=== PATIENT | female | born 1935 | race Caucasian/White ===

== ENCOUNTER 2018-06-22 17:06 | Emergency (ER) | payer MEDICARE, OTHER ==
--- NOTE | 2018-06-22 19:25 | ERPHSYRPT ---
- History of Present Illness Source: patient Exam Limitations: no limitations Patient Subjective Stated Complaint: nose bleed for past 2 hours Triage Nursing Assessment: Pt c/o of a nose bleed for the past 2 hours, moderately bleeding, hx of epistaxis, denies any trauma, was sitting in a chair watching television when it began, BP 169/87, denies pain, denies any other issues at this time Physician History: Pt is an 83 y/o female that started having nose bleed for 2 hrs, before presenting to the ER. Pt denies any nose picking, and states, her nose bleed just started out of nowhere. Pt takes all her meds as prescribed, including her BP meds. No complains of any rhinorrhea, sinusitis, headache or any h/o severe nose bleed. Timing/Duration: abrupt onset Severity: moderate ENT Location: nose Prearrival Treatment: no prearrival treatment Modifying Factors: Improves With: nothing Associated Symptoms: epistaxis Allergies/Adverse Reactions: No Known Drug Allergies Allergy (Verified 06/22/18 17:27) Home Medications: Levothyroxine Sodium 88 mcg PO DAILY 06/22/18 [History] Olmesartan/Hydrochlorothiazide [Olmesartan-Hctz 40-12.5 mg Tab] 1 tab PO DAILY 06/22/18 [History] Rosuvastatin Calcium [Crestor] 20 mg PO DAILY 06/22/18 [History] - Review of Systems Constitutional: No Fever, No Chills Eyes: No Symptoms Ears, Nose, & Throat: Epistaxis Respiratory: No Cough, No Dyspnea Cardiac: No Chest Pain, No Edema, No Syncope Abdominal/Gastrointestinal: No Abdominal Pain, No Nausea, No Vomiting, No Diarrhea Neurological: No Dizziness, No Focal Weakness, No Sensory Changes Endocrine: No Symptoms - Past Medical History Cardiac History: High Cholesterol, Hypertension - Past Surgical History Past Surgical History: Yes Female Surgical History: Hysterectomy - Social History Smoking Status: Never smoker Exposure to second hand smoke: No Drug Use: none Patient Lives Alone: No - Female History Hx Now: No - Nursing Vital Signs Nursing Vital Signs: Initial Vital Signs Pulse Rate 99 H 06/22/18 17:11 Blood Pressure 169/87 06/22/18 17:11 O2 Sat by Pulse Oximetry 93 L 06/22/18 17:11 Pain Scale Pain Intensity 4 - Physical Exam General Appearance: no apparent distress, alert Nasal Exam: active bleeding Throat Exam: pharynx normal, moist mucus membranes, No tonsillar exudate Cardiovascular/Respiratory Exam: normal breath sounds, regular rate/rhythm Abdominal Exam: non-tender, soft SpO2: 94 - Course Nursing assessment & vital signs reviewed: Yes - Progress Progress: improved Progress Note: 06/22/18 19:27 A rhinorocket was placed in pt's r nare. Bleeding stopped. Pt states, she drank some water and tolerated it well. Pt was cleared to d/c. Discussed with .: Kulwinder Will see patient in: office (Do not remove the rhino rocket till seen by PCP and ENT.) - Departure Time of Disposition: 19:28 Departure Disposition: Home Clinical Impression: Posterior epistaxis Condition: Stable Critical Care Time: No Referrals: IAN MANZANO MD [Primary Care Provider] - Additional Instructions: F/U with PCP tomorrow and referal for ENT, for posterior bleed.
[2018-06-22 19:42] VITALS: BP 133/88; PULSE 76; O2SAT 95
== END 2018-06-22 19:41 | disposition home or self-care (01) ==
LOC: ED 17:06
DX: R04.0 Epistaxis (principal); E78.00 Pure hypercholesterolemia, unspecified; I10 Essential (primary) hypertension
CPT/HCPCS: 99283

== ENCOUNTER 2018-08-05 15:13 | Observation (INO) | payer MEDICARE, OTHER ==
[2018-08-05] MEDS ORDERED: Sodium Chloride 0.9% 1000 ML 1,000 ML IV SCH (16:00)
--- NOTE | 2018-08-05 16:11 | ERPHSYRPT ---
- History of Present Illness Time Seen by Provider: 08/05/18 15:45 Source: family Exam Limitations: clinical condition Patient Subjective Stated Complaint: Pt states "She was here about a month ago for a nose bleed and ever since then she has really gone down hill. She has lost allot of weight, she has been dizzy, she has not eaten much at all. " Triage Nursing Assessment: Pt alert and oriented X 2, skin pwd. Pt ambulates with a shambling gait, able to speak in clear full sentences. PT in no apparent respiratory distress. Physician History: PATIENT WITH A HISTORY OF HYPERTENSION, PER SPOUSE HAS BECOME MORE CONFUSED OVER THE PAST 2 MONTHS, POOR APPETITE, HAS UNSTEADY GAIT ASSOCIATED WITH DIZZINESS. PATIENT DENIES HEADACHE, BLURRED VISION, SLURRED SPEECH, DYSPNEA, COUGH, NAUSEA, EMESIS, DIARRHEA OR URINARY SYMPTOMS. Timing/Duration: week(s) Severity: moderate Character of Deficits: other (UNSTABLE GAIT) Deficits: off balance Baseline/Normal Cognition: alert but confused Current Cognition: alert oriented x 3 Baseline Gait: walks w/o assistance Associated Symptoms: weakness Allergies/Adverse Reactions: No Known Drug Allergies Allergy (Verified 06/22/18 17:27) Home Medications: Levothyroxine Sodium 88 mcg PO DAILY 06/22/18 [History] Rosuvastatin Calcium [Crestor] 20 mg PO DAILY 06/22/18 [History] Donepezil HCl [Donepezil HCl Odt] 5 mg PO DAILY 08/05/18 [History] Metformin HCl 500 mg [Glucophage 500 MG] 500 mg PO DAILY 08/05/18 [History ] Hx Tetanus, Diphtheria Vaccination/Date Given: No Hx Influenza Vaccination/Date Given: No Hx Pneumococcal Vaccination/Date Given: No Immunizations Up to Date: Yes - Review of Systems Constitutional: No Symptoms, No Fever, No Chills Eyes: No Symptoms Ears, Nose, & Throat: No Symptoms Respiratory: No Symptoms, No Cough, No Dyspnea Cardiac: No Symptoms, No Chest Pain, No Edema, No Syncope Abdominal/Gastrointestinal: No Symptoms, No Abdominal Pain, No Nausea, No Vomiting, No Diarrhea Genitourinary Symptoms: No Symptoms, No Dysuria Musculoskeletal: No Symptoms, No Back Pain, No Neck Pain Skin: No Rash Neurological: Dizziness, No Focal Weakness, No Sensory Changes Psychological: No Symptoms Endocrine: No Symptoms All Other Systems: Reviewed and Negative - Past Medical History Pertinent Past Medical History: Yes Neurological History: Other ENT History: Cataracts Cardiac History: High Cholesterol, Hypertension Respiratory History: No Pertinent History Endocrine Medical History: Diabetes Type II Musculoskeletal History: Arthritis GI Medical History: No Pertinent History History: No Pertinent History Psycho-Social History: No Pertinent History Female Reproductive Disorders: No Pertinent History Other Medical History: memory problems - Past Surgical History Past Surgical History: Yes Female Surgical History: Hysterectomy Other Surgical History: cataract - Social History Smoking Status: Never smoker Exposure to second hand smoke: No Drug Use: none Patient Lives Alone: No - Female History Hx Now: No - Nursing Vital Signs Nursing Vital Signs: Initial Vital Signs Temperature 98.6 F 08/05/18 15:28 Pulse Rate 88 08/05/18 15:28 Respiratory Rate 18 08/05/18 15:28 Blood Pressure 124/57 08/05/18 15:28 O2 Sat by Pulse Oximetry 96 08/05/18 15:28 Pain Scale Pain Intensity 0 - Physical Exam General Appearance: no apparent distress, alert Eye Exam: bilateral eye: PERRL, EOMI Ears, Nose, Throat Exam: normal ENT inspection, moist mucous membranes Neck Exam: normal inspection, non-tender, supple Respiratory: normal breath sounds, lungs clear, airway intact, No respiratory distress Cardiovascular: regular rate/rhythm, No edema Gastrointestinal: soft, normal bowel sounds, No tenderness, No distention Back Exam: normal inspection Extremity Exam: normal inspection, No pedal edema Peripheral Pulses: carotid (R): 2+, carotid (L): 2+, femoral (R): 2+, femoral (L ): 2+, dorsalis-pedis (R): 2+, dorsalis-pedis (L): 2+ Mental Status: alert, 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 Exam: normal hearing, normal speech, tongue midline Coordination/Gait: normal finger to nose, normal gait Motor/Sensory: no motor deficit, no sensory deficit DTR: bicep (R): 2+, bicep (L): 2+, tricep (R): 2+, tricep (L): 2+, knee (R): 2+ , knee (L): 2+, ankle (R): 2+, ankle (L): 2+ Skin Exam: normal color, warm, dry, No rash SpO2 Interpretation: normal SpO2: 96 - Course EKG Interpreted by Me: RATE, Sinus Rhythm (RATE OF 77, ANTEROSEPTAL ST SEGMENT DEPRESSION) - Radiology Exams Chest X-ray Interpretation: Interpreted by me, Negative, No Infiltrates - CT Exams Head CT Interpretation: Discussed w/radiologist, No/Intracranial Hemorrhag Ordered Tests: Active Orders 24 hr Category Date Time Status Peg Driver STAT Care 08/05/18 16:02 Active Clean Catch Urine Specimen STAT Care 08/05/18 16:00 Active EKG-ER Only STAT Care 08/05/18 16:00 Active IV Insertion STAT Care 08/05/18 16:00 Active CHEST 1 VIEW (PORTABLE) Stat Exams 08/05/18 16:02 Taken HEAD WITHOUT CONTRAST [CT] Stat Exams 08/05/18 16:02 Taken CBC W DIFF Stat Lab 08/05/18 16:00 Completed CMP Stat Lab 08/05/18 16:00 Completed MAGNESIUM Stat Lab 08/05/18 16:09 Completed PROTIME WITH INR Stat Lab 08/05/18 16:00 Completed UA W/RFX UR CULTURE Stat Lab 08/05/18 16:01 Uncollected Transfer Order Routine Transfer 08/05/18 Ordered Medication Summary Generic Name Dose Route Start Last Admin Trade Name Freq PRN Reason Stop Dose Admin Sodium Chloride 1,000 mls @ 50 mls/hr 08/05/18 16:00 08/05/18 16:18 Sodium Chloride 0.9% 1000 Ml IV 09/04/18 15:59 50 mls/hr .Q20H AKIRA Administration Potassium Chloride 20 meq in 100 mls @ 50 mls/hr 08/05/18 17:02 08/05/18 17: 16 Potassium Chloride 20 Meq In Water 100ml IV 08/05/18 19:01 50 mls/hr STAT ONE Administration Discontinued Medications Generic Name Dose Route Start Last Admin Trade Name Freq PRN Reason Stop Dose Admin Potassium Chloride Confirm 08/05/18 17:07 Potassium Chloride 20 Meq In Water 100ml Administered 08/05/18 17:08 Dose 100 mls @ ud IV .STK-MED ONE Potassium Chloride 40 meq 08/05/18 17:02 08/05/18 17:12 Klor Con 10 Meq PO 08/05/18 17:03 40 meq STAT ONE Administration Potassium Chloride Confirm 08/05/18 17:07 Klor Con 10 Meq Administered 08/05/18 17:08 Dose 40 meq PO .STK-MED ONE Lab/Rad Data: Laboratory Result Diagrams 08/05/18 16:00 08/05/18 16:00 Laboratory Results 08/05/18 08/05/18 08/05/18 Range/Units 16:09 16:00 16:00 WBC (4.0-10.5) K/mm3 RBC (4.1-5.4) M/mm3 Hgb (12.0-16.0) gm/dl Hct (35-47) % MCV (78-100) fl MCH (26-32) pg MCHC (32-36) g/dl RDW (11.5-14.0) % Plt Count (150-450) K/mm3 MPV (6-9.5) fl Gran % (36.0-66.0) % Eos # (Auto) (0-0.5) Absolute Lymphs (auto) (1.0-4.6) Absolute Monos (auto) (0.0-1.3) Lymphocytes % (24.0-44.0) % Monocytes % (0.0-12.0) % Eosinophils % (0.00-5.0) % Basophils % (0.0-0.4) % Absolute Granulocytes (1.4-6.9) Basophils # (0-0.4) PT 13.1 H (9.95-12.35) SECONDS INR 1.13 (0.8-3.0) Sodium 137 (137-145) mmol/L Potassium 2.7 L* (3.5-5.1) mmol/L Chloride 90 L (98-107) mmol/L Carbon Dioxide 34 H (22-30) mmol/L Anion Gap 16.0 H (5-15) MEQ/L BUN 43 H (7-17) mg/dL Creatinine 2.81 H (0.52-1.04) mg/dL Estimated GFR 17.1 ML/MIN Glucose 121 H (74-106) mg/dL Calcium 9.8 (8.4-10.2) mg/dL Magnesium 2.0 (1.6-2.3) mg/dL Total Bilirubin 1.00 (0.2-1.3) mg/dL AST 21 (14-36) U/L ALT 13 (0-35) U/L Alkaline Phosphatase 91 (38-126) U/L Serum Total Protein 7.4 (6.3-8.2) g/dL Albumin 4.1 (3.5-5.0) g/dL /01/16 Range/Units 16:00 WBC 9.6 (4.0-10.5) K/mm3 RBC 4.08 L (4.1-5.4) M/mm3 Hgb 11.8 L (12.0-16.0) gm/dl Hct 36.4 (35-47) % MCV 89.2 (78-100) fl MCH 28.9 (26-32) pg MCHC 32.4 (32-36) g/dl RDW 14.7 H (11.5-14.0) % Plt Count 197 (150-450) K/mm3 MPV 10.5 H (6-9.5) fl Gran % 72.6 H (36.0-66.0) % Eos # (Auto) 0.17 (0-0.5) Absolute Lymphs (auto) 1.52 (1.0-4.6) Absolute Monos (auto) 0.92 (0.0-1.3) Lymphocytes % 15.8 L (24.0-44.0) % Monocytes % 9.5 (0.0-12.0) % Eosinophils % 1.8 (0.00-5.0) % Basophils % 0.3 (0.0-0.4) % Absolute Granulocytes 7.00 H (1.4-6.9) Basophils # 0.03 (0-0.4) PT (9.95-12.35) SECONDS INR (0.8-3.0) Sodium (137-145) mmol/L Potassium (3.5-5.1) mmol/L Chloride (98-107) mmol/L Carbon Dioxide (22-30) mmol/L Anion Gap (5-15) MEQ/L BUN (7-17) mg/dL Creatinine (0.52-1.04) mg/dL Estimated GFR ML/MIN Glucose (74-106) mg/dL Calcium (8.4-10.2) mg/dL Magnesium (1.6-2.3) mg/dL Total Bilirubin (0.2-1.3) mg/dL AST (14-36) U/L ALT (0-35) U/L Alkaline Phosphatase (38-126) U/L Serum Total Protein (6.3-8.2) g/dL Albumin (3.5-5.0) g/dL - Progress Progress Note: 08/05/18 16:43 IV NORMAL SALINE 50ML/HR Discussed with : Kulwinder (DISCUSSED WITH DR MANZANO AT 1720 FOR OBSERVATION) - Departure Time of Disposition: 18:00 Departure Disposition: Observation Clinical Impression: ALTERED MENTAL STATUS, HYPOKALEMIA Condition: Stable Critical Care Time: No Referrals: IAN MANZANO MD [Primary Care Provider] -
[2018-08-05 16:52] LABS: INR 1.13 (0.8-3.0); PROTIME 13.1 SECONDS (9.95-12.35)
[2018-08-05 16:53] LABS: BASOPHIL % 0.3 % (0.0-0.4); Basophil (Absolute #) 0.03 (0-0.4); Eosinophil % 1.8 % (0.00-5.0); Eosinophil (Absolute #) 0.17 (0-0.5); Granulocytes % 72.6 % (36.0-66.0); Hematocrit 36.4 % (35-47); Hemoglobin 11.8 gm/dl (12.0-16.0); Lymphocyte (Absolute #) 1.52 (1.0-4.6); Lymphocytes % 15.8 % (24.0-44.0); Mean Cell Volume 89.2 fl (78-100); Mean Corpuscular Hemoglobin 28.9 pg (26-32); Mean Corpuscular Hgb Concent. 32.4 g/dl (32-36); Mean Platelet Volume 10.5 fl (6-9.5); Monocyte (Absolute #) 0.92 (0.0-1.3); Monocytes % 9.5 % (0.0-12.0); Platelet Count 197 K/mm3 (150-450); Red Blood Count 4.08 M/mm3 (4.1-5.4); Red Cell Distribution Width 14.7 % (11.5-14.0); White Blood Count 9.6 K/mm3 (4.0-10.5)
[2018-08-05 16:57] LABS: ALBUMIN 4.1 g/dL (3.5-5.0); Calcium 9.8 mg/dL (8.4-10.2); Creatinine 1 2.81 mg/dL (0.52-1.04); Total Protein 7.4 g/dL (6.3-8.2)
[2018-08-05 17:00] LABS: Potassium 2.7 mmol/L (3.5-5.1)
[2018-08-05] MEDS ORDERED: POTASSIUM CHLORIDE 20 mEq IN WATER 100ML 20 MEQ/100 ML BAG IV ONE ×2 (17:02→18:36)
[2018-08-05] MEDS ORDERED: Klor Con 10 MEQ PO ONE ×2 (17:02→17:07)
[2018-08-05] MEDS ORDERED: POTASSIUM CHLORIDE 20 mEq IN WATER 100ML 100 ML IV ONE (17:07)
[2018-08-05] MEDS ORDERED: Zofran 4 MG/2 ML VIAL IV PRN (18:36)
[2018-08-05] MEDS ORDERED: TYLENOL 325 MG PO PRN (18:36)
--- NOTE | 2018-08-05 21:39 | XRAY ---
Indication: Altered mental status. Dizziness. Multiple contiguous axial images obtained through the head without contrast. Comparison: None. Age-appropriate global atrophy and mild periventricular degenerative micro-ischemia bilaterally. No acute intracranial hemorrhage, abnormal extra-axial fluid collection, or mass effect. Fourth ventricle is midline without hydrocephalus. Bony calvarium intact. Visualized paranasal sinuses and mastoid air cells are clear. Impression: Nonacute senile brain. CTDI 70.80
[2018-08-05] MEDS: Klor Con 10 MEQ PO SCH (21:49)
--- NOTE | 2018-08-05 21:51 | XRAY ---
Indication: Cough and dizziness. Comparison: None Portable chest demonstrates left midlung calcified granuloma. Remaining lungs clear. Heart is not enlarged. Bony thorax intact with mild osteopenia and degenerative changes. Impression: Nonacute chest with chronic features.
[2018-08-06 00:33] LABS: Appearance CLOUDY (CLEAR); Bacteria MODERATE /HPF (NEGATIVE); Bilirubin NEGATIVE (NEGATIVE); Blood MODERATE Ery/ul (0-5); Crystals Unidentified 25-50 /HPF (NEGATIVE); Epithelial Cells FEW /HPF (FEW); Glucose NEGATIVE (NEGATIVE); Hyaline Casts 0-2 /LPF (0-2); Ketones NEGATIVE (NEGATIVE); Leukocyte Esterase MODERATE (NEGATIVE); Mucus MANY /HPF (NEGATIVE); Nitrite NEGATIVE (NEGATIVE); Protein,Urine Dip 100 (Negative); Specific Gravity 1.015 (1.005-1.025); Urobilinogen 2 mg/dL (0-1); WBC 26-50 /HPF (0-5)
[2018-08-06] MEDS ORDERED: POTASSIUM CHLORIDE 20 mEq IN WATER 100ML 20 MEQ/100 ML BAG IV ONE (08:12)
[2018-08-06] MEDS: Klor Con 10 MEQ PO SCH (08:32)
--- NOTE | 2018-08-06 08:36 | PCM.HP ---
History of Present Illness - Chief Complaint Chief Complaint: c/o confusion and dizziness for 1 week History of Present Illness: is a 83 year old female. Pt states "She was here about a month ago for a nose bleed and ever since then she has really gone down hill. She has lost allot of weight, she has been dizzy, she has not eaten much at all. " Patient was recently started on Aricept for her early onset alzeihmer dementia , since then she has above symptoms - Review of Systems Constitutional: Weakness, No Fever, No Chills Eyes: No Symptoms Ears, Nose, & Throat: No Symptoms Respiratory: No Cough, No Short Of Breath Cardiac: No Chest Pain, No Edema, No Syncope Abdominal/Gastrointestinal: No Abdominal Pain, No Nausea, No Vomiting, No Diarrhea Genitourinary Symptoms: No Dysuria Musculoskeletal: No Back Pain, No Neck Pain Skin: No Rash Neurological: Dizziness, Lethargy, No Focal Weakness, No Sensory Changes Psychological: No Symptoms Endocrine: No Symptoms Hematologic/Lymphatic: No Symptoms Immunological/Allergic: No Symptoms Medications & Allergies Home Medications: Home Medication List Levothyroxine Sodium 88 mcg PO DAILY 06/22/18 [History Confirmed 08/05/18] Rosuvastatin Calcium [Crestor] 20 mg PO DAILY 06/22/18 [History Confirmed ] Donepezil HCl [Donepezil HCl Odt] 5 mg PO DAILY 08/05/18 [History Confirmed 01/16] Metformin HCl 500 mg [Glucophage 500 MG] 500 mg PO DAILY 08/05/18 [ History Confirmed 08/05/18] Allergies/Adverse Reactions: Allergies Allergy/AdvReac Type Severity Reaction Status Date / Time No Known Drug Allergies Allergy Verified 06/22/18 17:27 - Past Medical History Past Medical History: Yes Neurological History: Other ENT History: Cataracts Cardiac History: High Cholesterol, Hypertension Respiratory History: No Pertinent History Endocrine Medical History: Diabetes Type II Musculoskelatal History: Arthritis GI Medical History: No Pertinent History, Other History: No Pertinent History Pyscho-Social History: No Pertinent History Reproductive Disorders: No Pertinent History Comment: memory problems - Female History Are you now?: No - Past Surgical History Past Surgical History: Yes Neuro Surgical History: No Pertinent History Cardiac History: No Pertinent History Respiratory Surgery: No Pertinent History GI Surgical History: No Pertinent History Genitourinary Surgical Hx: No Pertinent History Musculskeletal Surgical Hx: No Pertinent History Female Surgical History: Hysterectomy Other Surgical History: cataract - Social History Smoking Status: Never smoker Exposure to second hand smoke: No Alcohol: None Drug Use: none - Physical Exam Vital Signs: Vital Signs - 24 hr Temp Pulse Resp BP Pulse Ox 08/06/18 08:31 97.6 F 80 18 125/58 96 08/06/18 06:00 18 08/06/18 05:00 98.0 F 78 18 131/59 93 L 08/06/18 02:08 17 08/06/18 00:00 98.1 F 83 18 112/55 95 08/05/18 22:08 18 08/05/18 20:47 98.7 F 82 20 122/55 93 L 08/05/18 20:00 98.3 F 86 18 126/59 92 L 08/05/18 17:56 96 08/05/18 17:02 78 18 97 08/05/18 16:24 98.9 F 77 18 104/52 98 08/05/18 15:28 98.6 F 88 18 124/57 96 General Appearance: no apparent distress, alert, lethargy Neurologic Exam: alert, cooperative, normal mood/affect, sensation nml, confusion, No motor deficits Eye Exam: PERRL/EOMI, eyes nml inspection Ears, Nose, Throat Exam: normal ENT inspection, TMs normal, pharynx normal, moist mucous membranes Neck Exam: normal inspection, non-tender, supple, full range of motion Respiratory Exam: normal breath sounds, lungs clear, No respiratory distress Cardiovascular Exam: regular rate/rhythm, normal heart sounds, normal peripheral pulses Gastrointestinal/Abdomen Exam: soft, normal bowel sounds, No tenderness, No mass Back Exam: normal inspection, normal range of motion, No CVA tenderness, No vertebral tenderness Extremity Exam: normal inspection, normal range of motion, pelvis stable Skin Exam: normal color, warm, dry, No rash Lymphatic Exam: No adenopathy Results - Labs Lab/Micro Results: Accuchecks Date 08/05/18 Time 22:00 Accucheck Value: 110 Lab Results-Last 24 Hours 08/05/18 08/05/18 08/05/18 Range/Units 16:00 16:00 16:00 WBC 9.6 (4.0-10.5) K/mm3 RBC 4.08 L (4.1-5.4) M/mm3 Hgb 11.8 L (12.0-16.0) gm/dl Hct 36.4 (35-47) % MCV 89.2 (78-100) fl MCH 28.9 (26-32) pg MCHC 32.4 (32-36) g/dl RDW 14.7 H (11.5-14.0) % Plt Count 197 (150-450) K/mm3 MPV 10.5 H (6-9.5) fl Gran % 72.6 H (36.0-66.0) % Eos # (Auto) 0.17 (0-0.5) Absolute Lymphs (auto) 1.52 (1.0-4.6) Absolute Monos (auto) 0.92 (0.0-1.3) Lymphocytes % 15.8 L (24.0-44.0) % Monocytes % 9.5 (0.0-12.0) % Eosinophils % 1.8 (0.00-5.0) % Basophils % 0.3 (0.0-0.4) % Absolute Granulocytes 7.00 H (1.4-6.9) Basophils # 0.03 (0-0.4) PT 13.1 H (9.95-12.35) SECONDS INR 1.13 (0.8-3.0) Sodium 137 (137-145) mmol/L Potassium 2.7 L* (3.5-5.1) mmol/L Chloride 90 L (98-107) mmol/L Carbon Dioxide 34 H (22-30) mmol/L Anion Gap 16.0 H (5-15) MEQ/L BUN 43 H (7-17) mg/dL Creatinine 2.81 H (0.52-1.04) mg/dL Estimated GFR 17.1 ML/MIN Glucose 121 H (74-106) mg/dL Hemoglobin A1c (4.5-6.0) % Calcium 9.8 (8.4-10.2) mg/dL Magnesium (1.6-2.3) mg/dL Total Bilirubin 1.00 (0.2-1.3) mg/dL AST 21 (14-36) U/L ALT 13 (0-35) U/L Alkaline Phosphatase 91 (38-126) U/L Serum Total Protein 7.4 (6.3-8.2) g/dL Albumin 4.1 (3.5-5.0) g/dL Urine Color (YELLOW) Urine Appearance (CLEAR) Urine pH (5-6) Ur Specific [place] (1.005-1.025) Urine Protein (Negative) Urine Ketones (NEGATIVE) Urine Blood (0-5) [place]/ul Urine Nitrite (NEGATIVE) Urine Bilirubin (NEGATIVE) Urine Urobilinogen (0-1) mg/dL Ur Leukocyte Esterase (NEGATIVE) Urine WBC (Auto) (0-5) /HPF Urine RBC (Auto) (0-2) /HPF U Hyaline Cast (Auto) (0-2) /LPF U Epithel Cells (Auto) (FEW) /HPF Urine Bacteria (Auto) (NEGATIVE) /HPF Unidentified Crystals (NEGATIVE) /HPF Urine Mucus (Auto) (NEGATIVE) /HPF Urine Culture Reflexed (NO) Urine Glucose (NEGATIVE) mg/dL 08/05/18 08/05/18 08/06/18 Range/Units 16:00 16:09 00:10 WBC (4.0-10.5) K/mm3 RBC (4.1-5.4) M/mm3 Hgb (12.0-16.0) gm/dl Hct (35-47) % MCV (78-100) fl MCH (26-32) pg MCHC (32-36) g/dl RDW (11.5-14.0) % Plt Count (150-450) K/mm3 MPV (6-9.5) fl Gran % (36.0-66.0) % Eos # (Auto) (0-0.5) Absolute Lymphs (auto) (1.0-4.6) Absolute Monos (auto) (0.0-1.3) Lymphocytes % (24.0-44.0) % Monocytes % (0.0-12.0) % Eosinophils % (0.00-5.0) % Basophils % (0.0-0.4) % Absolute Granulocytes (1.4-6.9) Basophils # (0-0.4) PT (9.95-12.35) SECONDS INR (0.8-3.0) Sodium (137-145) mmol/L Potassium (3.5-5.1) mmol/L Chloride (98-107) mmol/L Carbon Dioxide (22-30) mmol/L Anion Gap (5-15) MEQ/L BUN (7-17) mg/dL Creatinine (0.52-1.04) mg/dL Estimated GFR ML/MIN Glucose (74-106) mg/dL Hemoglobin A1c 5.84 (4.5-6.0) % Calcium (8.4-10.2) mg/dL Magnesium 2.0 (1.6-2.3) mg/dL Total Bilirubin (0.2-1.3) mg/dL AST (14-36) U/L ALT (0-35) U/L Alkaline Phosphatase (38-126) U/L Serum Total Protein (6.3-8.2) g/dL Albumin (3.5-5.0) g/dL Urine Color YELLOW (YELLOW) Urine Appearance CLOUDY (CLEAR) Urine pH 5.0 (5-6) Ur Specific [place] 1.015 (1.005-1.025) Urine Protein 100 (Negative) Urine Ketones NEGATIVE (NEGATIVE) Urine Blood MODERATE (0-5) [place]/ul Urine Nitrite NEGATIVE (NEGATIVE) Urine Bilirubin NEGATIVE (NEGATIVE) Urine Urobilinogen 2 (0-1) mg/dL Ur Leukocyte Esterase MODERATE (NEGATIVE) Urine WBC (Auto) 26-50 (0-5) /HPF Urine RBC (Auto) 6-10 (0-2) /HPF U Hyaline Cast (Auto) 0-2 (0-2) /LPF U Epithel Cells (Auto) FEW (FEW) /HPF Urine Bacteria (Auto) MODERATE (NEGATIVE) /HPF Unidentified Crystals 25-50 (NEGATIVE) /HPF Urine Mucus (Auto) MANY (NEGATIVE) /HPF Urine Culture Reflexed YES (NO) Urine Glucose NEGATIVE (NEGATIVE) mg/dL 08/06/18 Range/Units 00:23 WBC (4.0-10.5) K/mm3 RBC (4.1-5.4) M/mm3 Hgb (12.0-16.0) gm/dl Hct (35-47) % MCV (78-100) fl MCH (26-32) pg MCHC (32-36) g/dl RDW (11.5-14.0) % Plt Count (150-450) K/mm3 MPV (6-9.5) fl Gran % (36.0-66.0) % Eos # (Auto) (0-0.5) Absolute Lymphs (auto) (1.0-4.6) Absolute Monos (auto) (0.0-1.3) Lymphocytes % (24.0-44.0) % Monocytes % (0.0-12.0) % Eosinophils % (0.00-5.0) % Basophils % (0.0-0.4) % Absolute Granulocytes (1.4-6.9) Basophils # (0-0.4) PT (9.95-12.35) SECONDS INR (0.8-3.0) Sodium (137-145) mmol/L Potassium 3.2 L (3.5-5.1) mmol/L Chloride (98-107) mmol/L Carbon Dioxide (22-30) mmol/L Anion Gap (5-15) MEQ/L BUN (7-17) mg/dL Creatinine (0.52-1.04) mg/dL Estimated GFR ML/MIN Glucose (74-106) mg/dL Hemoglobin A1c (4.5-6.0) % Calcium (8.4-10.2) mg/dL Magnesium (1.6-2.3) mg/dL Total Bilirubin (0.2-1.3) mg/dL AST (14-36) U/L ALT (0-35) U/L Alkaline Phosphatase (38-126) U/L Serum Total Protein (6.3-8.2) g/dL Albumin (3.5-5.0) g/dL Urine Color (YELLOW) Urine Appearance (CLEAR) Urine pH (5-6) Ur Specific [place] (1.005-1.025) Urine Protein (Negative) Urine Ketones (NEGATIVE) Urine Blood (0-5) [place]/ul Urine Nitrite (NEGATIVE) Urine Bilirubin (NEGATIVE) Urine Urobilinogen (0-1) mg/dL Ur Leukocyte Esterase (NEGATIVE) Urine WBC (Auto) (0-5) /HPF Urine RBC (Auto) (0-2) /HPF U Hyaline Cast (Auto) (0-2) /LPF U Epithel Cells (Auto) (FEW) /HPF Urine Bacteria (Auto) (NEGATIVE) /HPF Unidentified Crystals (NEGATIVE) /HPF Urine Mucus (Auto) (NEGATIVE) /HPF Urine Culture Reflexed (NO) Urine Glucose (NEGATIVE) mg/dL Accuchecks Date 08/05/18 Time 22:00 Accucheck Value: 110 - Radiology Impressions Radiology Exams & Impressions: Radiology Procedures Category Date Time Status CHEST 1 VIEW (PORTABLE) Stat Exams 08/05/18 16:02 Completed HEAD WITHOUT CONTRAST [CT] Stat Exams 08/05/18 16:[address]/HEAD WITHOUT CONTRAST Indication: Altered mental status. Dizziness. Multiple contiguous axial images obtained through the head without contrast. Comparison: None. Age-appropriate global atrophy and mild periventricular degenerative micro-ischemia bilaterally. No acute intracranial hemorrhage, abnormal extra-axial fluid collection, or mass effect. Fourth ventricle is midline without hydrocephalus. Bony calvarium intact. Visualized paranasal sinuses and mastoid air cells are clear. Impression: Nonacute senile brain. RAD/CHEST 1 VIEW (PORTABLE) Indication: Cough and dizziness. Comparison: None Portable chest demonstrates left midlung calcified granuloma. Remaining lungs clear. Heart is not enlarged. Bony thorax intact with mild osteopenia and degenerative changes. Impression: Nonacute chest with chronic features. Assessment/Plan (1) Hypokalemia due to inadequate potassium intake Current Visit: Yes Status: Acute Assessment & Plan: Last Vital Signs Temp 97.6 F 08/06/18 08:31 Pulse 80 08/06/18 08:31 Resp 18 08/06/18 08:31 BP 125/58 08/06/18 08:31 Pulse Ox 96 08/06/18 08:31 Allergies No Known Drug Allergies Allergy (Verified 06/22/18 17:27) Active Medications Acetaminophen (Tylenol 325 Mg) 650 mg PO Q4H PRN PRN PRN Reason: PAIN AND/OR FEVER Stop: 09/04/18 18:35 Sodium Chloride (Sodium Chloride 0.9% 1000 Ml) 1,000 mls @ 50 mls/hr IV .Q20H AKIRA Stop: 09/04/18 15:59 Last Admin: 08/05/18 16:18 Dose: 50 mls/hr Potassium Chloride (Potassium Chloride 20 Meq In Water 100ml) 20 meq in 100 mls @ 50 mls/hr IV STAT ONE Stop: 08/06/18 10:11 Last Admin: 08/06/18 08:33 Dose: 50 mls/hr Levothyroxine Sodium (Synthroid 88 Mcg) 88 mcg PO DAILY [facility] Stop: 09/05/18 09:59 Last Admin: 08/06/18 08:33 Dose: 88 mcg Ondansetron HCl (Zofran 4 Mg/2 Ml Vial) 4 mg IV Q6H PRN PRN PRN Reason: NAUSEA/VOMITING Stop: 09/04/18 18:35 Potassium Chloride (Klor Con 10 Meq) 10 meq PO BID [facility] Stop: 09/04/18 21:59 Last Admin: 08/06/18 08:32 Dose: 10 meq Simvastatin (Zocor 20mg) 40 mg PO QAM [facility] Stop: 09/05/18 09:59 Last Admin: 08/06/18 08:33 Dose: 40 mg Intake & Output 08/05/18 08/06/18 11:59 11:59 Intake Total 825 Output Total 150 Balance 675 Weight 67.8 kg Orders 08/05/18 21:17 [employer] Technologist/Discharge Plan ROUTINE ST Screen per Nursing Assess once 08/06/18 08:12 Potassium Chloride 20Meq/100Ml [POTASSIUM CHLORIDE 20 mEq IN WATER 100ML] 20 meq in 100 ml IV STAT 08/06/18 10:00 Simvastatin 20Mg [Zocor 20Mg] 40 mg PO QAM 08/06/18 Lunch Regular Diet Lab Tests 08/05/18 08/05/18 08/05/18 16:00 16:00 16:00 WBC 9.6 RBC 4.08 L Hgb 11.8 L Hct 36.4 MCV 89.2 MCH 28.9 MCHC 32.4 RDW 14.7 H Plt Count 197 MPV 10.5 H Gran % 72.6 H Eos # (Auto) 0.17 Absolute Lymphs (auto) 1.52 Absolute Monos (auto) 0.92 Lymphocytes % 15.8 L Monocytes % 9.5 Eosinophils % 1.8 Basophils % 0.3 Absolute Granulocytes 7.00 H Basophils # 0.03 PT 13.1 H INR 1.13 Sodium 137 Potassium 2.7 L* Chloride 90 L Carbon Dioxide 34 H Anion Gap 16.0 H BUN 43 H Creatinine 2.81 H Estimated GFR 17.1 Glucose 121 H Hemoglobin A1c Calcium 9.8 Magnesium Total Bilirubin 1.00 AST 21 ALT 13 Alkaline Phosphatase 91 Serum Total Protein 7.4 Albumin 4.1 Urine Color Urine Appearance Urine pH Ur Specific [place] Urine Protein Urine Ketones Urine Blood Urine Nitrite Urine Bilirubin Urine Urobilinogen Ur Leukocyte Esterase Urine WBC (Auto) Urine RBC (Auto) U Hyaline Cast (Auto) U Epithel Cells (Auto) Urine Bacteria (Auto) Unidentified Crystals Urine Mucus (Auto) Urine Culture Reflexed Urine Glucose 08/05/18 08/05/18 08/06/18 16:00 16:09 00:10 WBC RBC Hgb Hct MCV MCH MCHC RDW Plt Count MPV Gran % Eos # (Auto) Absolute Lymphs (auto) Absolute Monos (auto) Lymphocytes % Monocytes % Eosinophils % Basophils % Absolute Granulocytes Basophils # PT INR Sodium Potassium Chloride Carbon Dioxide Anion Gap BUN Creatinine Estimated GFR Glucose Hemoglobin A1c 5.84 Calcium Magnesium 2.0 Total Bilirubin AST ALT Alkaline Phosphatase Serum Total Protein Albumin Urine Color YELLOW Urine Appearance CLOUDY Urine pH 5.0 Ur Specific [place] 1.015 Urine Protein 100 Urine Ketones NEGATIVE Urine Blood MODERATE Urine Nitrite NEGATIVE Urine Bilirubin NEGATIVE Urine Urobilinogen 2 Ur Leukocyte Esterase MODERATE Urine WBC (Auto) 26-50 Urine RBC (Auto) 6-10 U Hyaline Cast (Auto) 0-2 U Epithel Cells (Auto) FEW Urine Bacteria (Auto) MODERATE Unidentified Crystals 25-50 Urine Mucus (Auto) MANY Urine Culture Reflexed YES Urine Glucose NEGATIVE 08/06/18 00:23 WBC RBC Hgb Hct MCV MCH MCHC RDW Plt Count MPV Gran % Eos # (Auto) Absolute Lymphs (auto) Absolute Monos (auto) Lymphocytes % Monocytes % Eosinophils % Basophils % Absolute Granulocytes Basophils # PT INR Sodium Potassium 3.2 L Chloride Carbon Dioxide Anion Gap BUN Creatinine Estimated GFR Glucose Hemoglobin A1c Calcium Magnesium Total Bilirubin AST ALT Alkaline Phosphatase Serum Total Protein Albumin Urine Color Urine Appearance Urine pH Ur Specific [place] Urine Protein Urine Ketones Urine Blood Urine Nitrite Urine Bilirubin Urine Urobilinogen Ur Leukocyte Esterase Urine WBC (Auto) Urine RBC (Auto) U Hyaline Cast (Auto) U Epithel Cells (Auto) Urine Bacteria (Auto) Unidentified Crystals Urine Mucus (Auto) Urine Culture Reflexed Urine Glucose IV K replacement. Code(s): E87.6 - HYPOKALEMIA (2) Confusion and disorientation Current Visit: Yes Status: Acute Assessment & Plan: improving, hold Aricept Code(s): R41.0 - DISORIENTATION, UNSPECIFIED (3) HTN (hypertension) Current Visit: Yes Status: Chronic Code(s): I10 - ESSENTIAL (PRIMARY) HYPERTENSION (4) Dementia, vascular, mixed Current Visit: Yes Status: Chronic Code(s): F01.50 - VASCULAR DEMENTIA WITHOUT BEHAVIORAL DISTURBANCE (5) Alzheimer's dementia without behavioral disturbance Current Visit: Yes Status: Chronic Qualifiers: Alzheimer's disease onset: early-onset Qualified Code(s): G30.0 - Alzheimer 's disease with early onset; F02.80 - Dementia in other diseases classified elsewhere without behavioral disturbance Code(s): G30.9 - ALZHEIMER'S DISEASE, UNSPECIFIED; F02.80 - DEMENTIA IN OTH DISEASES CLASSD ELSWHR W/O BEHAVRL DISTURB
[2018-08-06] MEDS ORDERED: Aricept 10 MG PO SCH (10:00)
[2018-08-06] MEDS ORDERED: NON-FORMULARY ITEM (Rosuvastatin Calcium [Crestor] 20 MG) PO SCH (10:00)
[2018-08-06] MEDS ORDERED: SYNTHROID 88 MCG PO SCH (10:00)
[2018-08-06] MEDS ORDERED: ZOCOR 20MG PO SCH (10:00)
[2018-08-06 13:21] VITALS: BP 111/62; PULSE 81; O2SAT 94
== END 2018-08-06 14:30 | disposition home or self-care (01) ==
LOC: ED 15:13 → MED SURG 18:30
PROVIDERS: ADMIT General Practice; ATTEND General Practice
DX: E87.6 Hypokalemia (principal); G30.0 Alzheimer's disease with early onset; F02.80 Dementia in other diseases classified elsewhere, unspecified severity, without behavioral disturbance, psychotic disturbance, mood disturbance, and anxiety; E11.9 Type 2 diabetes mellitus without complications; I10 Essential (primary) hypertension; R41.0 Disorientation, unspecified; R42 Dizziness and giddiness; Z79.84 Long term (current) use of oral hypoglycemic drugs; Z79.899 Other long term (current) drug therapy
CPT/HCPCS: 36000; 36415; 70450; 71045; 80053; 81001; 82962; 83036; 83735; 84132; 85025; 85610; 87086; 93005; 93041; 96360; 96361; 96365; 96366; 99285; G0378; 96374; J3480; A9270-GY

== ENCOUNTER 2019-05-27 10:13 | Emergency (ER) | payer MEDICARE, OTHER ==
[2019-05-27] MEDS ORDERED: Sodium Chloride 0.9% 1000 ML 1,000 ML IV STA ×2 (10:26→12:01)
[2019-05-27] MEDS ORDERED: Sodium Chloride 0.9% 1000 ML 1,000 ML ONE ×2 (10:34→12:04)
--- NOTE | 2019-05-27 10:40 | ERPHSYRPT ---
- History of Present Illness Time Seen by Provider: 05/27/19 10:38 Source: patient, family Exam Limitations: no limitations Patient Subjective Stated Complaint: pt brought in by family for frequent falls this week, she lost her balance and fell 3 times yesterday and 2 times today, she has some dementia. she is takening antibotics for bronchitits. Triage Nursing Assessment: pt alert, poor historian, resp easy, skin w/d/p. arrived per was able to undress and transfer from to bed with minimal assist of one, swelling and bruising to nose, moves all ext well Physician History: pt brought in by family for frequent falls this week, she lost her balance and fell 3 times yesterday and 2 times today, she has some dementia. she is taking antibotics for bronchitits. Timing/Duration: day(s) Associated Symptoms: denies symptoms Allergies/Adverse Reactions: No Known Drug Allergies Allergy (Verified 05/27/19 10:31) Home Medications: Levothyroxine Sodium 88 mcg PO DAILY 06/22/18 [History] Rosuvastatin Calcium [Crestor] 20 mg PO DAILY 06/22/18 [History] Metformin HCl 500 mg [Glucophage 500 MG] 500 mg PO DAILY 08/05/18 [History ] Ciprofloxacin HCl [Cipro] 500 mg BID 05/27/19 [History] Hx Tetanus, Diphtheria Vaccination/Date Given: No Hx Influenza Vaccination/Date Given: No Hx Pneumococcal Vaccination/Date Given: No Immunizations Up to Date: Yes - Review of Systems Constitutional: No Fever, No Chills Eyes: No Symptoms Ears, Nose, & Throat: No Symptoms Respiratory: No Cough, No Dyspnea Cardiac: No Chest Pain, No Edema, No Syncope Abdominal/Gastrointestinal: No Abdominal Pain, No Nausea, No Vomiting, No Diarrhea Genitourinary Symptoms: No Dysuria Musculoskeletal: No Back Pain, No Neck Pain Skin: No Rash Neurological: No Dizziness, No Focal Weakness, No Sensory Changes Psychological: No Symptoms Endocrine: No Symptoms All Other Systems: Reviewed and Negative - Past Medical History Pertinent Past Medical History: Yes Neurological History: Other ENT History: Cataracts Cardiac History: High Cholesterol, Hypertension Respiratory History: No Pertinent History Endocrine Medical History: Diabetes Type II Musculoskeletal History: Arthritis GI Medical History: No Pertinent History, Other History: No Pertinent History Psycho-Social History: No Pertinent History Female Reproductive Disorders: No Pertinent History Other Medical History: memory problems - Past Surgical History Past Surgical History: Yes Neuro Surgical History: No Pertinent History Cardiac: No Pertinent History Respiratory: No Pertinent History Gastrointestinal: No Pertinent History Genitourinary: No Pertinent History Musculoskeletal: No Pertinent History Female Surgical History: Hysterectomy Other Surgical History: cataract - Social History Smoking Status: Never smoker Exposure to second hand smoke: No Drug Use: none Patient Lives Alone: No - Female History Hx Last Menstrual Period: post - Nursing Vital Signs Nursing Vital Signs: Initial Vital Signs Temperature 99.4 F 05/27/19 10:25 Pulse Rate 82 05/27/19 10:25 Respiratory Rate 16 05/27/19 10:25 Blood Pressure 144/63 05/27/19 10:25 O2 Sat by Pulse Oximetry 97 05/27/19 10:25 Pain Scale Pain Intensity 0 - Physical Exam General Appearance: no apparent distress, alert Eye Exam: PERRL/EOMI, eyes nml inspection Ears, Nose, Throat Exam: normal ENT inspection, TMs normal, pharynx normal, moist mucous membranes Neck Exam: normal inspection, non-tender, supple, full range of motion Respiratory Exam: normal breath sounds, lungs clear, No respiratory distress Cardiovascular Exam: regular rate/rhythm, normal heart sounds, normal peripheral pulses Gastrointestinal/Abdomen Exam: soft, normal bowel sounds, No tenderness, No mass Back Exam: normal inspection, normal range of motion, No CVA tenderness, No vertebral tenderness Extremity Exam: normal inspection, normal range of motion, pelvis stable Neurologic Exam: alert, oriented x 3, cooperative, normal mood/affect, nml cerebellar function, nml station & gait, sensation nml, No motor deficits Skin Exam: normal color, warm, dry, No rash Lymphatic Exam: No adenopathy SpO2: 97 - Course Nursing assessment & vital signs reviewed: Yes EKG Interpreted by Me: Sinus Rhythm - CT Exams Head CT Interpretation: Tele-radiologist Report Ordered Tests: Active Orders 24 hr Category Date Time Status EKG-ER Only STAT Care 05/27/19 10:26 Active CHEST 1 VIEW (PORTABLE) Stat Exams 05/27/19 10:27 Completed HEAD WITHOUT CONTRAST [CT] Stat Exams 05/27/19 10:27 Taken CBC W DIFF Stat Lab 05/27/19 10:40 Completed CMP Stat Lab 05/27/19 10:40 Completed MAGNESIUM Stat Lab 05/27/19 10:40 Completed TROPONIN Q3H Lab 05/27/19 10:40 Completed TROPONIN Q3H Lab 05/27/19 13:30 Ordered TROPONIN Q3H Lab 05/27/19 16:30 Ordered TROPONIN Q3H Lab 05/27/19 19:30 Ordered TROPONIN Q3H Lab 05/27/19 22:30 Ordered UA W/RFX UR CULTURE Stat Lab 05/27/19 10:27 Ordered Medication Summary Generic Name Dose Route Start Last Admin Trade Name Freq PRN Reason Stop Dose Admin Sodium Chloride 1,000 mls @ 999 mls/hr 05/27/19 12:01 05/27/19 12:06 Sodium Chloride 0.9% 1000 Ml IV 05/27/19 13:01 999 mls/hr .Q1H1M STA Administration Discontinued Medications Generic Name Dose Route Start Last Admin Trade Name Freq PRN Reason Stop Dose Admin Sodium Chloride 1,000 mls @ 999 mls/hr 05/27/19 10:26 05/27/19 11:42 Sodium Chloride 0.9% 1000 Ml IV 05/27/19 11:26 Infused .Q1H1M STA Infusion Sodium Chloride Confirm 05/27/19 10:34 Sodium Chloride 0.9% 1000 Ml Administered 05/27/19 10:35 Dose 1,000 mls @ ud .ROUTE .STK-MED ONE Sodium Chloride Confirm 05/27/19 12:04 Sodium Chloride 0.9% 1000 Ml Administered 05/27/19 12:05 Dose 1,000 mls @ ud .ROUTE .STK-MED ONE Magnesium Oxide 400 mg 05/27/19 11:13 05/27/19 11:20 Mag-Ox 400 PO 05/27/19 11:14 400 mg DAILY STA Administration Magnesium Oxide Confirm 05/27/19 11:19 Mag-Ox 400 Administered 05/27/19 11:20 Dose 400 mg .ROUTE .STK-MED ONE Potassium Bicarbonate 25 meq 05/27/19 11:12 05/27/19 11:20 K-Lyte 25 Meq PO 05/27/19 11:13 25 meq STAT ONE Administration Potassium Bicarbonate Confirm 05/27/19 11:13 K-Lyte 25 Meq Administered 05/27/19 11:14 Dose 25 meq .ROUTE .STK-MED ONE Lab/Rad Data: Laboratory Result Diagrams 05/27/19 10:40 05/27/19 10:40 Laboratory Results 05/27/19 05/27/19 05/27/19 Range/Units 10:40 10:40 10:40 WBC 5.6 (4.0-10.5) K/mm3 RBC 3.63 L (4.1-5.4) M/mm3 Hgb 10.7 L (12.0-16.0) gm/dl Hct 32.9 L (35-47) % MCV 90.6 (78-100) fl MCH 29.5 (26-32) pg MCHC 32.5 (32-36) g/dl RDW 13.9 (11.5-14.0) % Plt Count 145 L (150-450) K/mm3 MPV 9.6 H (6-9.5) fl Gran % 64.1 (36.0-66.0) % Eos # (Auto) 0.05 (0-0.5) Absolute Lymphs (auto) 1.00 (1.0-4.6) Absolute Monos (auto) 0.94 (0.0-1.3) Lymphocytes % 17.8 L (24.0-44.0) % Monocytes % 16.7 H (0.0-12.0) % Eosinophils % 0.9 (0.00-5.0) % Basophils % 0.5 (0.0-0.4) % Absolute Granulocytes 3.60 (1.4-6.9) Basophils # 0.03 (0-0.4) Sodium 138 (137-145) mmol/L Potassium 3.4 L (3.5-5.1) mmol/L Chloride 99 (98-107) mmol/L Carbon Dioxide 29 (22-30) mmol/L Anion Gap 13.2 (5-15) MEQ/L BUN 24 H (7-17) mg/dL Creatinine 1.58 H (0.52-1.04) mg/dL Estimated GFR 33.2 ML/MIN Glucose 92 (74-106) mg/dL Calcium 10.2 (8.4-10.2) mg/dL Magnesium 1.4 L (1.6-2.3) mg/dL Total Bilirubin 0.60 (0.2-1.3) mg/dL AST 34 (14-36) U/L ALT 16 (0-35) U/L Alkaline Phosphatase 61 (38-126) U/L Troponin I < 0.012 (0.000-0.034) ng/mL Serum Total Protein 7.4 (6.3-8.2) g/dL Albumin 3.8 (3.5-5.0) g/dL - Progress Progress: improved Counseled pt/family regarding: lab results, diagnosis, need for follow-up, rad results - Departure Departure Disposition: Home Clinical Impression: Mild dehydration, Hypokalemia due to inadequate potassium intake, Hypomagnesemia Dementia, vascular, mixed Qualifiers: Dementia behavioral disturbance: without behavioral disturbance Qualified Code( s): F01.50 - Vascular dementia without behavioral disturbance Condition: Stable Critical Care Time: No Referrals: IAN MANZANO MD [Primary Care Provider] - Instructions: Preventing Falls, Dehydration, Adult (DC), Hypokalemia (DC), Low Magnesium Level (DC) Additional Instructions: Discharge/Care Plan QAMAR TOLENTINO was seen on 05/27/19 in the Emergency Room. The patient was counseled regarding Diagnosis,Lab results, Imaging studies, need for follow up and when to return to the Emergency Room. Prescriptions given: Discharge Note I have spoken with the patient and/or caregivers. I have explained the patient' s condition, diagnosis and treatment plan based on the information available to me at this time. I have answered the patient's and/or caregiver's questions and addressed any concerns. The patient and/or caregivers have as good understanding of the patient's diagnosis, condition and treatment plan as can be expected at this point. The vital signs have been stable. The patient's condition is stable and appropriate for discharge from the emergency department. The patient will pursue further outpatient evaluation with the primary care physician or other designated or consulting physician as outlined in the discharge instructions. The patient and/or caregivers are agreeable to this plan of care and follow-up instructions have been explained in detail. The patient and/or caregivers have received these instruction. The patient/and or caregivers are aware that any significant change in condition or worsening of symptoms should prompt an immediate return to this or the closest emergency department or call 911.
[2019-05-27 11:00] LABS: BASOPHIL % 0.5 % (0.0-0.4); Basophil (Absolute #) 0.03 (0-0.4); Eosinophil % 0.9 % (0.00-5.0); Eosinophil (Absolute #) 0.05 (0-0.5); Hematocrit 32.9 % (35-47); Hemoglobin 10.7 gm/dl (12.0-16.0); Lymphocytes % 17.8 % (24.0-44.0); Mean Cell Volume 90.6 fl (78-100); Mean Corpuscular Hemoglobin 29.5 pg (26-32); Mean Corpuscular Hgb Concent. 32.5 g/dl (32-36); Mean Platelet Volume 9.6 fl (6-9.5); Monocyte (Absolute #) 0.94 (0.0-1.3); Monocytes % 16.7 % (0.0-12.0); Neutrophil % 64.1 % (36.0-66.0); Platelet Count 145 K/mm3 (150-450); Red Blood Count 3.63 M/mm3 (4.1-5.4); Red Cell Distribution Width 13.9 % (11.5-14.0); White Blood Count 5.6 K/mm3 (4.0-10.5)
[2019-05-27 11:06] LABS: ALBUMIN 3.8 g/dL (3.5-5.0); ANION GAP 13.2 MEQ/L (5-15); BILIRUBIN,TOTAL 0.6 mg/dL (0.2-1.3); Calcium 10.2 mg/dL (8.4-10.2); Creatinine 1 1.58 mg/dL (0.52-1.04); MAGNESIUM 1.4 mg/dL (1.6-2.3); Potassium 3.4 mmol/L (3.5-5.1); Total Protein 7.4 g/dL (6.3-8.2)
[2019-05-27] MEDS ORDERED: K-LYTE 25 MEQ PO ONE (11:12)
[2019-05-27] MEDS ORDERED: K-LYTE 25 MEQ ONE (11:13)
[2019-05-27] MEDS ORDERED: MAG-OX 400 PO STA (11:13)
[2019-05-27] MEDS ORDERED: MAG-OX 400 ONE (11:19)
--- NOTE | 2019-05-27 12:12 | XRAY ---
Indication: Multiple falls. Comparison: August 05, 2018. Portable chest remains clear again with incidental left midlung calcified granuloma. Heart is not enlarged for AP portable technique. Bony thorax intact again with mild osteopenia and degenerative changes. Impression: Stable nonacute chest with chronic features.
[2019-05-27 13:04] VITALS: BP 147/74; PULSE 75; O2SAT 93
--- NOTE | 2019-05-27 22:07 | XRAY ---
Indication: Head injury following fall. Multiple contiguous axial images obtained through the head without contrast. Comparison: August 05, 2018. Again age-appropriate global atrophy and mild periventricular degenerative micro-ischemia bilaterally. No acute intracranial hemorrhage, abnormal extra-axial fluid collection, or mass effect. Fourth ventricle is midline without hydrocephalus. Bony calvarium intact. There is now moderate mucosal thickening of both ethmoid, both sphenoid, and both maxillary sinuses with some fluid leveling. Impression: 1. Nonacute senile brain. 2. New paranasal sinus disease. Comment: Preliminary interpretation was made by [facility]. No critical discrepancy. CTDI 43.40
== END 2019-05-27 13:04 | disposition home or self-care (01) ==
LOC: ED 10:13
DX: E86.0 Dehydration (principal); E87.6 Hypokalemia; E83.42 Hypomagnesemia; F01.50 Vascular dementia, unspecified severity, without behavioral disturbance, psychotic disturbance, mood disturbance, and anxiety; R29.6 Repeated falls; J40 Bronchitis, not specified as acute or chronic; E11.9 Type 2 diabetes mellitus without complications; Z79.4 Long term (current) use of insulin; I10 Essential (primary) hypertension; E78.00 Pure hypercholesterolemia, unspecified; M19.90 Unspecified osteoarthritis, unspecified site
CPT/HCPCS: 36415; 70450; 71045; 80053; 83735; 84484; 85025; 93005; 96360; 99284; A9270-GY